=== PATIENT | female | born 1980 | race Caucasian/White ===

== ENCOUNTER → 2022-07-05 15:33 | Outpatient (BNVA) | payer MEDICARE, MEDICAID, SELFPAY | PROVIDERS: Visit Provider Internal Medicine | DX: B20 Human immunodeficiency virus [HIV] disease (principal) | CPT/HCPCS: 99202 ==

== ENCOUNTER 2022-07-30 16:18 | Outpatient (REF) | payer MEDICARE, MEDICAID, SELFPAY ==
[2022-08-03 20:27] LABS: HIV RNA PCR Qn Copies 27 copies/mL (NOT DETECTED); HIV RNA PCR Qn Log Copies 1.43 (NOT DETECTED)
== END 2022-07-30 16:19 | disposition home or self-care (01) ==
LOC: HO.LAB 16:18
PROVIDERS: PCP Internal Medicine; Visit Provider Internal Medicine
DX: B20 Human immunodeficiency virus [HIV] disease (principal)
CPT/HCPCS: 36415; 87536

== ENCOUNTER → 2022-08-09 15:49 | Outpatient (BNVA) | payer MEDICARE, MEDICAID, SELFPAY | PROVIDERS: PCP Internal Medicine; Visit Provider Internal Medicine | DX: B20 Human immunodeficiency virus [HIV] disease (principal) | CPT/HCPCS: 96372; 99212 ==

== ENCOUNTER 2022-08-25 11:34 | Outpatient (REF) | payer MEDICARE, MEDICAID, SELFPAY ==
[2022-08-27 11:34] LABS: HIV RNA PCR Qn Copies 102 copies/mL (NOT DETECTED); HIV RNA PCR Qn Log Copies 2.01 (NOT DETECTED)
== END 2022-08-25 11:35 | disposition home or self-care (01) ==
LOC: HO.LAB 11:34
PROVIDERS: PCP Internal Medicine; Visit Provider Internal Medicine
DX: B20 Human immunodeficiency virus [HIV] disease (principal)
CPT/HCPCS: 36415; 87536